=== PATIENT | female | born 1980 | race Caucasian/White ===

== ENCOUNTER 2019-12-09 23:47 | Emergency (ER) | payer OTHER ==
[~2019-12-09] VITALS: Ht 162.6 cm; Wt 100.2 kg
[2019-12-10] MEDS ORDERED: ONDANSETRON HCL/PF 4 MG/2 ML VIAL IVP ONE
[2019-12-10] MEDS ORDERED: IV NS 0.9% 1,000 ML BAG IV ONE
[2019-12-10 00:17] LABS: BASOPHILS # (AUTO) 0.1 /CMM (0.0-0.2); BASOPHILS % (AUTO) 0.7 % (0.0-2.0); EOSINOPHILS % (AUTO) 2.3 % (0.0-6.0); HEMATOCRIT 39 % (33-45); HEMOGLOBIN 12.7 g/dL (11.5-14.8); LYMPHOCYTES # (AUTO) 1.8 /CMM (0.8-4.8); LYMPHOCYTES % (AUTO) 12.3 % (20.0-44.0); MEAN CORPUSCULAR HGB CONC 33 g/dl (31.0-36.0); MEAN CORPUSCULAR VOLUME 89 fL (82-100); MONOCYTES # (AUTO) 0.5 /CMM (0.1-1.30); MONOCYTES % (AUTO) 3.1 % (2.0-12.0); NEUTROPHILS # (AUTO) 12.2 /CMM (1.8-8.9); NEUTROPHILS % (AUTO) 81.6 % (43.0-81.0); PLATELET COUNT (AUTO) 364 /CMM (150-450); RED BLOOD CELL COUNT(AUTO) 4.35 MIL/uL (4.0-5.2); WHITE BLOOD COUNT (AUTO) 14.9 K/uL (4.3-11.0)
--- NOTE | 2019-12-10 00:17 | NUR ---
PATIENT CAME TO ER BED 9 C/O RIGHT UPPER ABDOMINAL PAIN SINCE 1800. PATIENT STATES THAT SHE VOMITED HER FOOD AT AROUND 1800 AND DID NOT NOTICE ANY BLOOD OR ANYTHING OUT OF THE ORDINARY. PATIENT STATES THAT SHE DOES NOT FEEL NAUSEOUS. PATIENT IS AAOX4. NO SOB .BREATHING EVENLY AND UNLABORED ON ROOM AIR. PATIENT IS CONNECTED TO THE MONITOR.
--- NOTE | 2019-12-10 00:18 | NUR ---
BLOOD ALREADY COLLECTED AND SENT TO THE LAB.
--- NOTE | 2019-12-10 00:21 | NUR ---
ULTRASOUND AT BEDSIDE
[2019-12-10] MEDS ORDERED: MAG HYDROX/AL HYDROX/SIMETH 30 ML UDC ONE (00:26)
[2019-12-10] MEDS ORDERED: FAMOTIDINE/PF INJ 20 MG/2 ML VIAL IV ONE ×2 (00:26→00:30)
[2019-12-10] MEDS ORDERED: LIDOCAINE VISCOUS 2% UD 15 ML UDC ONE (00:26)
[2019-12-10] MEDS ORDERED: MAG HYDROX/AL HYDROX/SIMETH 30 ML UDC PO ONE (00:30)
[2019-12-10] MEDS ORDERED: LIDOCAINE VISCOUS 2% UD 15 ML UDC MM ONE (00:30)
[2019-12-10 00:37] LABS: CALCIUM, SERUM 8.7 mg/dL (8.5-10.1); CREATININE 1.2 mg/dL (0.6-1.3); POTASSIUM 3.7 mmol/L (3.5-5.1)
[2019-12-10 00:44] LABS: ALBUMIN 3.5 g/dL (3.4-5.0); BILIRUBIN,TOTAL 0.2 mg/dL (0.2-1.0); TOTAL PROTEIN, SERUM 7.5 g/dL (6.4-8.2)
--- NOTE | 2019-12-10 00:57 | NUR ---
ULTRASOUND PROCEDURE FINISHED
[2019-12-10 02:00] LABS: APPEARANCE,URINE CLEAR (CLEAR); BILIRUBIN,URINE NEGATIVE (NEGATIVE); BLOOD, URINE SMALL Ery/uL (NEGATIVE); COLOR,URINE YELLOW (YELLOW); KETONES,URINE NEGATIVE (NEGATIVE); LEUKOCYTE ESTERASE ,URINE NEGATIVE (NEGATIVE); NITRITE, URINE NEGATIVE (NEGATIVE); PROTEIN,URINE NEGATIVE (NEGATIVE); UGLUCOSE NEGATIVE (NEGATIVE); UROBILINOGEN,URINE 0.2 EU/dL (0.2)
[2019-12-10 02:12] LABS: BACTERIA,URINE Few /HPF (None Seen); RBC,URINE 0-2 /HPF (0-2); SQUAMOUS EPITHELIAL CELL,UR Few /HPF (None Seen); WBC,URINE 0-2 /HPF (0-3)
--- NOTE | 2019-12-10 02:13 | NUR ---
IV removed. Catheter intact and site benign. Pressure and 4x4 applied to site. No bleeding noted.
--- NOTE | 2019-12-10 02:14 | NUR ---
Patient discharged to home in stable condition. Written and verbal after care instructions given. Patient verbalizes understanding of instruction.
[2019-12-10 02:27] VITALS: BP 123/72
[2019-12-11] MEDS ORDERED: ESCI10TA PO (06:40)
[2019-12-11] MEDS ORDERED: FAMO20TA8 PO (07:08)
== END 2019-12-10 02:28 | disposition home or self-care (01) ==
LOC: ER 23:50
DX: K80.50 Calculus of bile duct without cholangitis or cholecystitis without obstruction (principal); R10.11 Right upper quadrant pain; R11.2 Nausea with vomiting, unspecified; K80.20 Calculus of gallbladder without cholecystitis without obstruction
CPT/HCPCS: 36415; 76705; 80048; 80076; 81001; 83690; 84703; 85025; 96361; 96374; 99284; J3490; J7030; 81000-TC

== ENCOUNTER 2019-12-11 03:50 | Inpatient (IN) | payer OTHER ==
[~2019-12-11] VITALS: Ht 162.6 cm; Wt 97.1 kg
--- NOTE | 2019-12-11 04:03 | NUR ---
PT AAOX4. AMBULATORY WITH STEADY GAIT. BIBS C/O RUQ ABD PAIN. ALSO FEVER. PT PLACED ON MONITOR AND PULSE OX IN BED 7. MD AT BEDSIDE FOR EVAL. AWAITING ORDERS. WILL CONTINUE TO MONITOR.
--- NOTE | 2019-12-11 04:05 | NUR ---
PT SIGNED PREG WAIVER.
[2019-12-11] MEDS ORDERED: KETOROLAC TROMETHAMINE 15 MG/ML VIAL ONE (04:08)
--- NOTE | 2019-12-11 04:12 | NUR ---
BLOOD WORK COLLECTED, SENT TO LAB.
--- NOTE | 2019-12-11 04:13 | NUR ---
URINE COLLECTED, SENT TO LAB.
[2019-12-11 04:23] LABS: BASOPHILS # (AUTO) 0.1 /CMM (0.0-0.2); BASOPHILS % (AUTO) 0.4 % (0.0-2.0); EOSINOPHILS % (AUTO) 2.2 % (0.0-6.0); HEMATOCRIT 36 % (33-45); LYMPHOCYTES # (AUTO) 1.6 /CMM (0.8-4.8); LYMPHOCYTES % (AUTO) 12.8 % (20.0-44.0); MEAN CORPUSCULAR HGB CONC 34 g/dl (31.0-36.0); MEAN CORPUSCULAR VOLUME 89 fL (82-100); MONOCYTES # (AUTO) 0.8 /CMM (0.1-1.30); MONOCYTES % (AUTO) 6.4 % (2.0-12.0); NEUTROPHILS # (AUTO) 9.8 /CMM (1.8-8.9); NEUTROPHILS % (AUTO) 78.2 % (43.0-81.0); PLATELET COUNT (AUTO) 318 /CMM (150-450); RED BLOOD CELL COUNT(AUTO) 4.01 MIL/uL (4.0-5.2); WHITE BLOOD COUNT (AUTO) 12.5 K/uL (4.3-11.0)
[2019-12-11 04:26] LABS: APPEARANCE,URINE CLEAR (CLEAR); BILIRUBIN,URINE NEGATIVE (NEGATIVE); BLOOD, URINE SMALL Ery/uL (NEGATIVE); COLOR,URINE YELLOW (YELLOW); KETONES,URINE NEGATIVE (NEGATIVE); LEUKOCYTE ESTERASE ,URINE NEGATIVE (NEGATIVE); NITRITE, URINE NEGATIVE (NEGATIVE); PROTEIN,URINE NEGATIVE (NEGATIVE); UGLUCOSE NEGATIVE (NEGATIVE); UROBILINOGEN,URINE 0.2 EU/dL (0.2)
[2019-12-11 04:30] LABS: CALCIUM, SERUM 8.4 mg/dL (8.5-10.1); CREATININE 1.1 mg/dL (0.6-1.3); POTASSIUM 3.8 mmol/L (3.5-5.1)
[2019-12-11] MEDS ORDERED: KETOROLAC TROMETHAMINE INJ 30 MG/ML VIAL IV ONE (04:30)
[2019-12-11 04:36] LABS: ALBUMIN 3.2 g/dL (3.4-5.0); BILIRUBIN,DIRECT 0.1 mg/dL (0.0-0.2); BILIRUBIN,TOTAL 0.5 mg/dL (0.2-1.0)
[2019-12-11] MEDS ORDERED: PIPERACILLIN /TAZOBACTAM 3.375 G VIAL IV ONE (04:56)
[2019-12-11] MEDS ORDERED: PIPERACILLIN /TAZOBACTAM 3.375 G in IV D5W 50 ML IV ONE (05:00)
--- NOTE | 2019-12-11 05:34 | NUR ---
called house sup for MS bed
--- NOTE | 2019-12-11 05:35 | NUR ---
dr de paz on the phone w/ dr Conde ,general surgeon
--- NOTE | 2019-12-11 05:43 | NUR ---
REPORT GIVEN TO JOSE G GILMORE FOR NOEL.
--- NOTE | 2019-12-11 06:08 | NUR ---
PATIENT TAKEN TO ASSIGNED RROOM 322-2
[2019-12-11 06:10] VITALS: BP 132/60
[2019-12-11 06:15] VITALS: BP 132/60
--- NOTE | 2019-12-11 06:20 | NUR ---
RN ADMITTING NOTES PATIENT RECEIVED FROM ER VIA [facility]. A/O X 4. STABLE ON RA WITH BREATHING EVEN AND UNLABORED, NO SOB NOTED. NO SIGNS OF ACUTE DISTRESS. AMBULATORY. SLIGHT COMPLAINTS OF PAIN AND DISCOMFORT. VITALS TAKEN. BELONGINGS ACCOUNTED FOR. SKIN ASSESSMENT DONE. PATIENT ORIENTED TO ROOM AND STAFF. IV LOCATED ON AC #20. SAFETY PRECAUTIONS IN PLACE WITH BED IN LOWEST POSITION, CALL LIGHT WITHIN REACH, BREAKS ON, SIDE RAILS UP. WILL CONTINUE TO MONITOR THROUGHOUT THE NIGHT.
[2019-12-11] MEDS: IV D5/ 0.9% NACL 1,000 ML IV PRN (06:28)
[2019-12-11] MEDS ORDERED: ONDANSETRON HCL/PF 4 MG/2 ML VIAL IVP PRN (06:30)
[2019-12-11] MEDS ORDERED: ACETAMINOPHEN 650 MG/SUPP.RECT RC PRN (06:30)
[2019-12-11] MEDS ORDERED: ESCI10TA PO (06:40)
[2019-12-11] MEDS ORDERED: FAMO20TA8 PO (07:08)
--- NOTE | 2019-12-11 07:13 | NUR ---
RN CLOSING NOTES PATIENT IN BED RESTING, A/O X 4. STABLE ON RA WITH BREATHING EVEN AND UNLABORED, NO SOB NOTED. NO SIGNS OF ACUTE DISTRESS. SLIGHT COMPLAINTS OF PAIN AND DISCOMFORT AT THE MOMENT. L AC #20 RUNNING D5 NS @ 100 ML/HR. SAFETY PRECAUTIONS IN PLACE WITH BED IN LOWEST POSITION, CALL LIGHT WITHIN REACH, BREAKS ON, SIDE RAILS UP. WILL ENDORSE TO ONCOMING SHIFT ABOUT NOEL.
[2019-12-11] MEDS: PANTOPRAZOLE 40 MG VIAL IV SCH (09:00)
[2019-12-11] MEDS ORDERED: PIPERACILLIN /TAZOBACTAM 3.375 G in IV D5W 50 ML IV SCH (12:00)
[2019-12-11] MEDS: PIPERACILLIN /TAZOBACTAM 3.375 G in IV D5W 100 ML IV SCH ×2 (12:16→20:02)
[2019-12-11] MEDS ORDERED: MIDAZOLAM HCL 2 MG/2ML VIAL ONE (13:44)
[2019-12-11] MEDS ORDERED: FENTANYL PF 250MCG/5ML AMPUL ONE (13:44)
[2019-12-11] MEDS ORDERED: ROCURONIUM BROMIDE 50 MG/5 ML ONE (13:45)
[2019-12-11] MEDS ORDERED: FAMOTIDINE/PF INJ 20 MG/2 ML VIAL IV ONE (13:45)
[2019-12-11] MEDS ORDERED: HYDROMORPHONE INJ 2 MG/ML DISP.SYRIN ONE (13:45)
[2019-12-11] MEDS ORDERED: BUPIVACAINE MPF 0.5% W/EPI INJ 30 ML VIAL ONE (13:58)
--- NOTE | 2019-12-11 18:52 | NUR ---
rn notes patient remains on room air, no sob noted, patient a/o x4. S/P lap choly, patient states that pain is under control at this time. l ac 20 with d5 NS @ 100 ml per hour. Bed at the lowest setting, call light within reach, side rail sup x2. VSS.
--- NOTE | 2019-12-11 19:33 | NUR ---
MS RN OPENING NOTES RECEIVED PATIENT RESTING IN BED COMFORTABLY; A/OX4, BREATHING EVEN AND UNLABORED; NO SOB NOTED; TOLERATING ROOM AIR WELL; NO DISTRESS NOTED; PATIENT AMBULATORY WITH STEADY GAIT AND ABLE TO MAKE NEEDS KNOWN; L AC # 20 INTACT AND PATENT; INFUSING D5NS, TOLERATING IVF WELL; SAFETY PRECAUTIONS IMPLEMENTED; BED LOCKED IN LOW POSITION; SIDE RAILSX2; CALL LIGHT WITHIN REACH; WILL CONT TO MONITOR
--- NOTE | 2019-12-11 20:35 | NUR ---
MS RN NOTES MRSA ORDERED, NO SWAB COLLECTED; SPOKE WITH LAB, PER COLLEEN DOCUMENT CONTROL ASSISTANT, NO SPECIMEN WAS OBTAINED; MRSA SWAB COLLECTED VIA R NARES; LAB INFORMED; CHARGE NURSE AWARE; WILL CONT TO MONITOR
[2019-12-11 20:39] VITALS: BP 120/66
[2019-12-11 20:43] VITALS: BP 120/66
[2019-12-12] MEDS: MORPHINE SULFATE INJ 2 MG/ML DISP.SYRIN IV PRN ×2 (01:25→04:30)
[2019-12-12] MEDS: IV D5/ 0.9% NACL 1,000 ML IV PRN (03:29)
[2019-12-12] MEDS: PIPERACILLIN /TAZOBACTAM 3.375 G in IV D5W 100 ML IV SCH (04:03)
--- NOTE | 2019-12-12 06:28 | NUR ---
MS RN CLOSING NOTES PATIENT RESTING IN BED COMFORTABLY; A/OX4, BREATHING EVEN AND UNLABORED; NO SOB NOTED; TOLERATING ROOM AIR WELL; NO DISTRESS NOTED; PATIENT REPORTS 7/10 PAIN THAT IS RELEIVED WITH MORPHINE IVP Q3HRS; PATIENT ABLE TO MAKE NEEDS KNOWN; L AC # 20 INTACT AND PATENT; TOLERATING IVF WELL; NO S/S OF REDNESS OR INFILTRATION NOTED; ALL NEEDS RENDERED; SAFETY PRECAUTIONS IMPLEMENTED; BED LOCKED IN LOW POSITION; SIDE RAILSX2; CALL LIGHT WITHIN EASY REACH; WILL ENDORSE NOEL TO ONCOMING SHIFT
[2019-12-12 08:00] VITALS: BP 130/67
--- NOTE | 2019-12-12 08:00 | NUR ---
MS RN OPENING NOTES PATIENT IS AWAKE A/O X 4. WITH NO SIGNS OF DISTRESS IN ROOM AIR. IV L AC #20 INTACT RUNNING D5 NS AT 100 ML/HR. NO COMPLAIN OF PAIN AT THIS MOMENT. SAFETY MEASURES ARE APPLIED, BED IS LOCKED AND LOW POSITION, SIDE RAILS UP X 2. CALL LIGHT WITHIN REACH. WILL CONTINUE TO MONITOR.
[2019-12-12 08:09] LABS: BASOPHILS % (AUTO) 0.4 % (0.0-2.0); EOSINOPHILS % (AUTO) 0.5 % (0.0-6.0); HEMATOCRIT 32 % (33-45); HEMOGLOBIN 10.8 g/dL (11.5-14.8); LYMPHOCYTES # (AUTO) 1.5 /CMM (0.8-4.8); LYMPHOCYTES % (AUTO) 13.2 % (20.0-44.0); MEAN CORPUSCULAR HGB CONC 34 g/dl (31.0-36.0); MEAN CORPUSCULAR VOLUME 89 fL (82-100); MONOCYTES # (AUTO) 0.7 /CMM (0.1-1.30); MONOCYTES % (AUTO) 6.2 % (2.0-12.0); NEUTROPHILS # (AUTO) 9.3 /CMM (1.8-8.9); NEUTROPHILS % (AUTO) 79.7 % (43.0-81.0); PLATELET COUNT (AUTO) 284 /CMM (150-450); RED BLOOD CELL COUNT(AUTO) 3.61 MIL/uL (4.0-5.2); WHITE BLOOD COUNT (AUTO) 11.6 K/uL (4.3-11.0)
[2019-12-12 08:19] LABS: ALBUMIN 2.5 g/dL (3.4-5.0); BILIRUBIN,TOTAL 0.4 mg/dL (0.2-1.0); CALCIUM, SERUM 8.1 mg/dL (8.5-10.1); CREATININE 0.9 mg/dL (0.6-1.3); MAGNESIUM 1.9 mg/dL (1.8-2.4); PHOSPHORUS 3.2 mg/dL (2.5-4.9); POTASSIUM 4.1 mmol/L (3.5-5.1); TOTAL PROTEIN, SERUM 6.1 g/dL (6.4-8.2)
[2019-12-12] MEDS: HYDROCODONE/APAP 5/325MG TABLET PO PRN ×2 (08:32→12:42)
[2019-12-12] MEDS: PANTOPRAZOLE 40 MG VIAL IV SCH (08:32)
--- NOTE | 2019-12-12 13:30 | NUR ---
DISCHARGE NOTES PATIENT VITALS ARE WITHIN NORMAL LIMIT WITH NO SIGNS OF DISTRESS IN ROOM AIR. DISCHARGE INSTRUCTIONS AND AFTER CARE WAS VERBALIZED TO THE PATIENT AND PATIENT VERBALIZED UNDERSTANDING. BELONGING LIST WAS COMPLETED AND SIGNED. INCISION SITE IS COVERED WITH DRESSING AND NO SIGNS OF BLEEDING. IV WAS REMOVED WITH NO SIGNS OF BLEEDING AND COVERED. PATIENT LEFT VIA WHEELCHAIR WITH [place] JAFFE TO THE LOBBY AND GOT PICKED UP BY FAMILY MEMBER.
== END 2019-12-12 13:30 | disposition home or self-care (01) | DRG 419 ==
LOC: ER 03:51 → MED 05:36
PROC: 0FT44ZZ Resection of Gallbladder, Percutaneous Endoscopic Approach (ICD-10-PCS; principal; 2019-12-11)
DX: K80.00 Calculus of gallbladder with acute cholecystitis without obstruction (principal); K66.0 Peritoneal adhesions (postprocedural) (postinfection); K82.8 Other specified diseases of gallbladder
CPT/HCPCS: 36415; 80048-TC; 80053-TC; 80076-TC; 81000-TC; 83605-TC; 83690-TC; 83735-TC; 84100-TC; 84703-TC; 85025-TC; 85610-TC; 87040-TC; 87081-TC; 88304-TC; C9113; C9803; G0378; J0690; J1100; J1170; J1885; J2250; J2270; J2543; J2704; J2765; J3010; J3490; J7030; J7042; J7060